=== PATIENT | female | born 1985 | race Caucasian/White ===

== ENCOUNTER 2017-02-14 16:16 | Emergency (ER) | payer OTHER ==
[2017-02-14 16:25] VITALS: BP 111/89; PULSE 63; TEMP 98.2; BMI 38.4
--- NOTE | 2017-02-14 16:54 | PDOC ---
History of Present Illness - General Chief Complaint: Pain Stated Complaint: ABD PAIN () Time Seen by Provider: 02/14/17 16:40 History Source: Patient - History of Present Illness Timing/Duration: reports: constant Quality: reports: mild Abdominal Pain Onset Location: reports: suprapubic Past History - Past Medical History Allergies/Adverse Reactions: Allergies Allergy/AdvReac Type Severity Reaction Status Date / Time No Known Allergies Allergy Verified 02/14/17 16:22 Home Medications: Ambulatory Orders NK [No Known Home Medication] 02/14/17 Asthma: No Cancer: No Cardiac Disorders: No Diabetes: No HTN: No Seizures: No Thyroid Disease: No - Psycho/Social/Smoking Cessation Hx Anxiety: No Suicidal Ideation: No Smoking History: Never smoked Have you smoked in the past 12 months: No Information on smoking cessation initiated: No Hx Alcohol Use: No Drug/Substance Use Hx: No Substance Use Type: None Hx Substance Use Treatment: No Review of Systems - Review of Systems Constitutional: No: Chills, Fever ABD/GI: Yes: Abdominal cramping. No: Nausea, Vomiting : No: Dysuria, Flank Pain *Physical Exam - Vital Signs Last Vital Signs Temp Pulse Resp BP Pulse Ox 98.2 F 63 18 111/89 100 02/14/17 16:22 02/14/17 16:22 02/14/17 16:22 02/14/17 16:22 02/14/17 16:22 - Physical Exam General Appearance: Yes: Appropriately Dressed. No: Apparent Distress HEENT: positive: Normal Voice Neck: positive: Supple Respiratory/Chest: negative: Respiratory Distress Female Pelvic Exam: positive: normal external exam, cervical os closed, normal adnexa. negative: CMT, discharge, lesions, vaginal bleeding Gastrointestinal/Abdominal: positive: Soft. negative: Tender Integumentary: positive: Dry, Warm Neurologic: positive: Fully Oriented, Alert, Normal Mood/Affect ED Treatment Course - RADIOLOGY Radiology Studies Ordered: Category Date Time Status TRANSVAGINAL US PREG [US] Stat Ultrasound 02/14/17 16:41 Ordered Medical Decision Making - Medical Decision Making 02/14/17 16:52 31 yo F, , ~10 weeks by dates, 1st next Thursday, p/w suprapubic cramping since last night. No vag bleed, dysuria, n/v/f/c See exam 1st trimester bleed Stable in ED w/ unremarkable abd and pelvic exam -tylenol -ua -beta -US 02/14/17 18:41 Pt signed out to OMKAR Virk at this time
[2017-02-14 17:13] LABS: URINE APPEARANCE CLOUDY; URINE BILIRUBIN NEGATIVE (NEGATIVE); URINE BLOOD 2+ (NEGATIVE); URINE COLOR YELLOW; URINE GLUCOSE (UA) NEGATIVE (NEGATIVE); URINE KETONE TRACE (NEGATIVE); URINE NITRITE NEGATIVE (NEGATIVE); URINE PROTEIN NEGATIVE (NEGATIVE); URINE UROBILINOGEN NEGATIVE mg/dL (0.2-1.0)
[2017-02-14 17:15] LABS: URINE LEUK ESTERASE 1+ (NEGATIVE)
[2017-02-14 17:17] LABS: URINE MUCUS RARE; URINE RBC 3 /hpf (0-3); URINE WBC 3 /hpf (3-5)
--- NOTE | 2017-02-14 21:01 | PDOC ---
*Physical Exam - Vital Signs Last Vital Signs Temp Pulse Resp BP Pulse Ox 98.2 F 63 18 111/89 100 02/14/17 16:22 02/14/17 16:22 02/14/17 16:22 02/14/17 16:22 02/14/17 16:22 ED Treatment Course - ADDITIONAL ORDERS Additional order review: Laboratory Results 02/14/17 02/14/17 17:13 17:08 Beta HCG, Quant 73616.0 Urine Color Yellow Urine Appearance Cloudy Urine pH 5.0 Urine Protein Negative Urine Glucose (UA) Negative Urine Ketones Trace H Urine Blood 2+ H Urine Nitrite Negative Urine Bilirubin Negative Urine Urobilinogen Negative Ur Leukocyte Esterase 1+ H Urine RBC 3 Urine WBC 3 Ur Epithelial Cells Few Urine Mucus Rare Progress Note - Progress Note Progress Note: US: SIUP 9 weeks 5 days FHR 146BPM *DC/Admit/Observation/Transfer Diagnosis at time of Disposition: UTI (urinary tract infection) Qualifiers: Urinary tract infection type: acute cystitis Hematuria presence: without hematuria Qualified Code(s): N30.00 - Acute cystitis without hematuria - Discharge Dispostion Disposition: HOME Condition at time of disposition: Stable Admit: No - Prescriptions Prescriptions: Nitrofurantoin Monohyd/M-Cryst [Macrobid -] 100 mg PO BID #14 capsule - Referrals Referrals: Susana Scott MD [Staff Physician] - - Patient Instructions Printed Discharge Instructions: DI for Urinary Tract Infection (UTI) Additional Instructions: Increase fluid intact Rx: macrobid Follow up with your field operations supervisor or the one listed on your discharge Return to the ER for severe/persistent/worsening symptoms.
[2017-02-14] MEDS ORDERED: NITROFURANTOIN MACROCRYSTAL 50 MG CAPSULE (FP) PO SCH (21:15)
[2017-02-14] MEDS ORDERED: NITROFURANTOIN MACROCRYSTAL 50 MG CAPSULE (FP) ONE (21:32)
== END 2017-02-14 21:07 | disposition home or self-care (01) ==
LOC: JER 16:16
DX: O23.41 Unspecified infection of urinary tract in pregnancy, first trimester (principal); Z3A.09 9 weeks gestation of pregnancy
CPT/HCPCS: 36415; 76801-TC; 81003; 81015; 84702; 87086; 99282-25

== ENCOUNTER 2017-09-04 07:55 | Inpatient (IN) | payer OTHER ==
[2017-09-04] MEDS ORDERED: BUTORPHANOL TARTRATE 1 MG/ML VIAL IVPB ONE (08:55)
[2017-09-04] MEDS ORDERED: PROMETHAZINE HCL 25 MG/1 ML VIAL IVPUSH ONE (08:55)
[2017-09-04] MEDS ORDERED: DEXTROSE 5%-LACTATED RINGERS 1,000 ML IV SCH (09:00)
--- NOTE | 2017-09-04 09:04 | HP ---
Past Medical History - Primary Care Physician PCP:: Johanna Gonzalez - Admission Chief Complaint: 32 yrs , 39 weeks iup admitted in active labor . Onset LP since 2.30 AM History of Present Illness: care at [address] [place] [address] . wt gain 10 lbs panel : 03/05/2017:A pos, Rpr nr, Hbsag neg, Hiv neg, , sickle neg, Rubella iimune , , pap nilm,gc/ct neg , cf neg 06/09/17 Quantiferon neg, , 1 hr GTT 117, , Rpr nr 08/11/17 Hiv neg, gbs neg, h/h 12.0/34.2 Sono done with MFM : growth Low PappA on NT screen (5%) Modified sequential neg, Materna T-21 neg h/o cardiac echogenic focus last spno 08/18/17: 36.4 weeks , SHERYL 12.2, EFW 5'13", BPP 8/8 h/o 08/07/15 35 weeks gestation , threatened PTL treated with IV fluids , & 2 dose of procardia 10 mg History Source: Patient, Medical Record Limitations to Obtaining History: No Limitations - Past Medical History AGENT BASED MODELER: No: Migraine, Syncope Cardiovascular: No: HTN, Murmur Pulmonary: No: Asthma Gastrointestinal: Yes: Constipation, Hemorrhoids Hepatobiliary: No: Hepatitis B Renal/: No: UTI ...: 9 ...Para: 3 ...Term: 2 (G3 09/15/03 40 wks 7'9" , G7 05/28/12 40 wks 6'9") ...: 1 (G6/25/02 35 wks 4'9" ) ...Induced : 5 (g1-2000,g2-2000, g4-2003, g5-2008,g8 ind ab ) ...LMP: 12/05/16 ... Weeks Gestation by Dates: 39 ...EDC by Dates: 09/11/17 ...EDC by Sono: 09/11/17 (39 weeks ) Heme/Onc: Yes: Anemia Infectious Disease: Yes: STD's (h/o Gonorrhea treated many years ago). No: AIDS , HIV, Tuberculosis Psych: No: Addictions, Anxiety, Bipolar, Depression, Panic, Schizophrenia Endocrine: No: Diabetes Mellitus, Hypothyroidism - Past Surgical History Past Surgical History: Yes: None Hx Myomectomy: No Hx Transabdominal Cerclage: No - Smoking History Smoking history: Never smoked Have you smoked in the past 12 months: No - Alcohol/Substance Use Hx Alcohol Use: No History of Substance Use: reports: None Home Medications - Allergies Allergies/Adverse Reactions: Allergies Allergy/AdvReac Type Severity Reaction Status Date / Time No Known Allergies Allergy Verified 09/04/17 09:08 - Home Medications Home Medications: Ambulatory Orders Ferrous Sulfate [Iron] 325 mg PO DAILY 08/07/17 Vitamins (Sjr) - 1 tab PO DAILY 08/07/17 Physical Exam - Maternity Constitutional: Yes: Moderate Distress, Obese Eyes: Yes: WNL HENT: Yes: WNL, Normocephalic Neck: Yes: WNL Cardiovascular: Yes: WNL, Regular Rate and Rhythm Lungs: Clear to auscultation Breast(s): Yes: WNL - Abdominal Exam/OB Fundal Height: 38 Number of Fetuses: Single Presentation: Vertex Contractions: Yes Regularity: Regular (2-4 min) Intensity: Mild/Mod Monitor Mode: External Heart Rate (range): 150 Heart Rate Location: [facility] Category: I Accelerations: Uniform Decelerations: None - Vaginal Exam/OB Vaginal Bleediing: No Dilatation (cm): 5-6 Effacement (%): 90 Amniotic Membrane Status: Bulging Presentation: Vertex/Position (exam at 8.20 AM) Station: -2 - Physical Exam Musculoskeletal: Yes: WNL Extremities: Yes: WNL. No: Calf Tenderness Edema: Yes Edema: LLE: 1+, RLE: 1+ Integumentary: Yes: Tattoos Deep Tendon Reflex Grade: Normal +2 ...Motor Strength: WNL Psychiatric: Yes: WNL, Alert, Oriented - Labs Lab Results: Laboratory Tests 09/04/17 09/04/17 09/04/17 09:20 09:20 09:20 WBC 13.2 H Hgb 12.7 Hct 38.1 Plt Count 153 Neutrophils % 81.3 Lymphocytes % 13.2 Monocytes % 5.0 Eosinophils % 0.3 Basophils % 0.2 PT with INR 11.70 INR 1.04 PTT (Actin FS) 26.0 L Sodium 138 Potassium 3.8 Chloride 106 Carbon Dioxide 25 BUN 7 Creatinine 0.5 L Random Glucose 86 Calcium 8.4 L Blood Type Antibody Screen 09/04/17 09:20 WBC Hgb Hct Plt Count Neutrophils % Lymphocytes % Monocytes % Eosinophils % Basophils % PT with INR INR PTT (Actin FS) Sodium Potassium Chloride Carbon Dioxide BUN Creatinine Random Glucose Calcium Blood Type A POSITIVE Antibody Screen Negative Problem List - Problems (1) 39 weeks gestation of Code(s): Z3A.39 - 39 WEEKS GESTATION OF (2) First stage of labor established Code(s): NST0311 - (3) Obesity (BMI 35.0-39.9 without comorbidity) Code(s): E66.9 - OBESITY, UNSPECIFIED Assessment/Plan 32 yrs , 39 weeks in active labor . GBS neg plan stadol + phenrgan prn for labor analgesia vag del aniticipated
[2017-09-04] MEDS ORDERED: PROMETHAZINE HCL 25 MG/1 ML VIAL ONE (09:16)
[2017-09-04] MEDS ORDERED: BUTORPHANOL TARTRATE 1 MG/ML VIAL ONE ×2 (09:16)
--- NOTE | 2017-09-04 09:39 | PN ---
Progress Note, Labor Vaginal Exam #1 Labor Exam Date: 09/04/17 Labor Exam Time: 09:33 Heart Rate (range): 150 Dilatation: 7 Effacement (%): 100 Amniotic Membrane Status: Ruptured (AROM clear) Presentation: Vertex/Position Station: -2 Remarks: fhr cat-1 UC q 2-3 min Stadol 2 mg + phenrgan 25 mg iv stat Vaginal Exam #2 Labor Exam Date: 09/04/17 Labor Exam Time: 10:25 Heart Rate (range): 130-140 Dilatation: 7 Effacement (%): 90 Amniotic Membrane Status: Ruptured Presentation: Vertex/Position Station: 0 (caput) Remarks: fhr cat-1 uc 2-4min stadol given at 9.21 AM. plan pitocin augmentation 11.10 am Selected Entries 09/04/17 10:00 Temperature 98.1 F Pulse Rate 74 Blood Pressure 122/60 Vaginal Exam #3 Labor Exam Date: 09/04/17 Labor Exam Time: 11:53 Heart Rate (range): 90 Dilatation: 100 Amniotic Membrane Status: Ruptured Presentation: Vertex/Position Station: +3 Remarks: pt pushing Selected Entries 09/04/17 10:00 Temperature 98.1 F Temperature Oral Source Pulse Rate 74 Blood Pressure 122/60 Selected Entries 09/04/17 11:00 Pulse Rate 62 Blood Pressure 89 Mean
[2017-09-04 09:42] LABS: BASO % 0.2 % (0-2.0); EOS % 0.3 % (0-4.5); HEMATOCRIT 38.1 % (32.4-45.2); HEMOGLOBIN 12.7 GM/dL (10.7-15.3); LYMPH % 13.2 % (8-40); MCH 28.8 pg (25.7-33.7); MCHC 33.5 g/dl (32.0-36.0); MEAN CELL VOLUME 86.1 fl (80-96); NEUT % 81.3 % (42.8-82.8); PLATELET COUNT 153 K/MM3 (134-434); RBC 4.42 M/mm3 (3.60-5.2); WHITE BLOOD COUNT 13.2 K/mm3 (4.0-10.0)
[2017-09-04 09:55] LABS: INR 1.04 (0.82-1.09); PROTHROMBIN TIME (PATIENT) 11.7 SEC (9.98-11.88)
[2017-09-04 10:03] VITALS: BMI 38.4
[2017-09-04 10:03] LABS: ANION GAP 7 (8-16); BLOOD UREA NITROGEN 7 mg/dL (7-18); CALCIUM 8.4 mg/dL (8.5-10.1); CHLORIDE 106 mmol/L (98-107); CO2 25 mmol/L (21-32); CREATININE 0.5 mg/dL (0.55-1.02); GLUCOSE,RANDOM 86 mg/dL (74-106); POTASSIUM 3.8 mmol/L (3.5-5.1); SODIUM 138 mmol/L (136-145)
[2017-09-04] MEDS ORDERED: OXYTOCIN 30 UNITS in 0.9% NS 30 UNIT/500 ML INFUS.BAG IVPB ONE (11:12)
[2017-09-04] MEDS ORDERED: OXYTOCIN 30 UNITS in 0.9% NS 30 UNIT/500 ML INFUS.BAG IVPB SCH (11:30)
[2017-09-04] MEDS ORDERED: D5W-LR W/ 20 UNITS OXYTOCIN 20 UNIT/1,000 ML INFUS.BAG IV ONE (11:50)
[2017-09-04] MEDS ORDERED: BENZOCAINE 20% 57 GM BOTTLE TP PRN (12:07)
[2017-09-04] MEDS ORDERED: METHYLERGONOVINE MALEATE 0.2 MG/1 ML AMP IM PRN (12:07)
[2017-09-04] MEDS ORDERED: oxyCODONE HCL 5 MG TABLET PO PRN (12:07)
[2017-09-04] MEDS ORDERED: BISACODYL 10 MG SUPP.RECT RC PRN (12:07)
[2017-09-04] MEDS ORDERED: WITCH HAZEL 50% (TUCKS) 40 PAD/JAR PAD TP PRN (12:07)
[2017-09-04] MEDS ORDERED: BENZOCAINE 28 GM HEMORRHOIDAL OINTMENT TP PRN (12:07)
[2017-09-04] MEDS ORDERED: OXYTOCIN 20 UNITS in 0.9% NS 20 UNIT/1,000 ML INFUS.BAG IV SCH (12:15)
--- NOTE | 2017-09-04 12:17 | PN ---
Delivery - Delivery Vaginal Delivery: No Problems, Spontaneous (Baby Girl was delievered in Vx presentation CHRIS position, immediate oral & nasal suction was done . perineum intact. AL hemorrhoids) Episiotomy/Laceration: None EBL (cc): 300 Delivery, Single - Stages of Labor Date 1st Stage Initiatied: 09/04/17 Time 1st Stage Initiated: 02:30 Date 2nd Stage Initiated: 09/04/17 Time 2nd Stage Initiated: 11:53 Date of Delivery: 09/04/17 Time of Delivery: 11:53 Date Placenta Delivered: 09/04/17 Time Placenta Delivered: 11:58 Placenta: Yes: Spontaneous, Uterine Exploration - Condition of Key Bed Installer/Commercial Assistant Present: No Infant Gender: Female Position: Left, OA Total Hours ROM (Hrs/Mins): 5hr-33 min - 1 Minute Total Score: 9 5 Minutes Total Score: 9 - Feeding Plan Initial Plan: Exclusive throughout hospitalization Remarks - Remarks Remarks: 32 yrs , admitted in labor, GBS neg PNC at [address] [place] [address] stadol 2 mg + phenrgan was given for labor analgesia Intrapartum course uneventful
[2017-09-04] MEDS: IBUPROFEN 600 MG TABLET (FP) PO PRN (15:43)
[2017-09-04] MEDS: FERROUS SO4 325 MG TABLET (FP) PO SCH (19:00)
[2017-09-05] MEDS: ACETAMINOPHEN 325 MG TABLET (FP) PO PRN ×3 (00:53→22:53)
[2017-09-05] MEDS: IBUPROFEN 600 MG TABLET (FP) PO PRN ×3 (00:54→22:53)
[2017-09-05] MEDS: FERROUS SO4 325 MG TABLET (FP) PO SCH ×2 (07:48→17:20)
[2017-09-05 08:37] LABS: BASO % 0.2 % (0-2.0); EOS % 0.5 % (0-4.5); HEMATOCRIT 34.9 % (32.4-45.2); HEMOGLOBIN 11.9 GM/dL (10.7-15.3); LYMPH % 18.3 % (8-40); MCH 29.3 pg (25.7-33.7); MCHC 34.1 g/dl (32.0-36.0); MEAN CELL VOLUME 85.9 fl (80-96); MEAN PLT VOLUME 9.6 fl (7.5-11.1); MONO % 6.5 % (3.8-10.2); NEUT % 74.5 % (42.8-82.8); PLATELET COUNT 141 K/MM3 (134-434); RBC 4.07 M/mm3 (3.60-5.2); RDW 14.6 % (11.6-15.6)
[2017-09-05] MEDS: PRENATAL VITAMINS W/ FOLIC ACID TABLET (FP) PO SCH (09:31)
--- NOTE | 2017-09-05 10:25 | PN ---
Post Progress Note - Subjective Subjective: Pt feeling well. Ambulating. Trying to breast feed. Voiding. Bleeding moderate Type of Delivery: Vital Signs: Vital Signs Temperature 98.2 F 09/05/17 07:40 Pulse Rate 78 09/05/17 07:40 Respiratory Rate 20 09/05/17 07:40 Blood Pressure 100/51 09/05/17 07:40 O2 Sat by Pulse Oximetry (%) Breast Exam: Yes: Soft Uterus: Yes: Fundus Firm Abdomen/GI: Yes: Abdomen soft Lochia: Yes: Rubra Lochia, amount: Small Extremities: Yes: Calves non-tender Activity: Ambulating - Labs Labs: CBC WBC 13.0 K/mm3 (4.0-10.0) H 09/05/17 07:45 RBC 4.07 M/mm3 (3.60-5.2) 09/05/17 07:45 Hgb 11.9 GM/dL (10.7-15.3) 09/05/17 07:45 Hct 34.9 % (32.4-45.2) 09/05/17 07:45 MCV 85.9 fl (80-96) 09/05/17 07:45 MCH 29.3 pg (25.7-33.7) 09/05/17 07:45 MCHC 34.1 g/dl (32.0-36.0) 09/05/17 07:45 RDW 14.6 % (11.6-15.6) 09/05/17 07:45 Plt Count 141 K/MM3 (134-434) 09/05/17 07:45 MPV 9.6 fl (7.5-11.1) 09/05/17 07:45 Neutrophils % 74.5 % (42.8-82.8) 09/05/17 07:45 Lymphocytes % 18.3 % (8-40) D 09/05/17 07:45 Monocytes % 6.5 % (3.8-10.2) 09/05/17 07:45 Eosinophils % 0.5 % (0-4.5) 09/05/17 07:45 Basophils % 0.2 % (0-2.0) 09/05/17 07:45 Problem List - Problems (1) Vaginal delivery Assessment/Plan: Pt PPD#1 s/p doing well continue routine care Dr. Francois Code(s): O80 - ENCOUNTER FOR FULL-TERM UNCOMPLICATED DELIVERY
[2017-09-05] MEDS ORDERED: SENNOSIDES/DOCUSATE COMBO (SENNA PLUS) TABLET (UD) PO PRN (22:00)
--- NOTE | 2017-09-06 07:33 | DS ---
Physical Exam-CLOTHES SHAKER Vital Signs: Vital Signs Temperature 98 F 09/05/17 21:14 Pulse Rate 84 09/05/17 21:14 Respiratory Rate 18 09/05/17 21:14 Blood Pressure 114/56 09/05/17 21:14 O2 Sat by Pulse Oximetry (%) Constitutional: Yes: Well Nourished Eyes: Yes: Conjunctiva Clear HENT: Yes: Atraumatic Neck: Yes: Supple Cardiovascular: Yes: Regular Rate and Rhythm Respiratory: Yes: Regular, CTA Bilaterally Gastrointestinal: Yes: Normal Bowel Sounds External Genitalia: Yes: Normal Vaginal Exam: Yes: Normal Cervix: Yes: Normal Uterus: Yes: Firm ....Post : Yes: Uterus firm Breast(s): Yes: WNL Musculoskeletal: Yes: WNL Extremities: Yes: WNL Neurological: Yes: Alert, Oriented ...Motor Strength: WNL Psychiatric: Yes: Alert, Oriented Labs: CBC, BMP 09/05/17 07:45 09/04/17 09:20 Delivery - Delivery Vaginal Delivery: No Problems, Spontaneous (Baby Girl was delievered in Vx presentation CHRIS position, immediate oral & nasal suction was done . perineum intact. AR hemorrhoids) Type of Anesthesia: None Episiotomy/Laceration: None EBL (cc): 300 Delivery, Single - Stages of Labor Date 1st Stage Initiatied: 09/04/17 Time 1st Stage Initiated: 02:30 Date 2nd Stage Initiated: 09/04/17 Time 2nd Stage Initiated: 11:53 Date of Delivery: 09/04/17 Time of Delivery: 11:54 Time Placenta Delivered: 11:58 Placenta: Yes: Spontaneous, Uterine Exploration - Condition of Car Pilot/Coil Winder Hand Present: No Infant Gender: Female Weight: 7 lb 7 oz Position: Left, OA Total Hours ROM (Hrs/Mins): 5hr-33 min - 1 Minute Total Score: 9 5 Minutes Total Score: 9 - Feeding Plan Initial Plan: Exclusive throughout hospitalization Discharge Summary Reason For Visit: LABOR ADMISSION Current Active Problems 39 weeks gestation of (Acute) First stage of labor established (Acute) Normal labor (Acute) Normal spontaneous vaginal delivery (Acute) Obesity (BMI 35.0-39.9 without comorbidity) (Acute) Spontaneous in first trimester (Acute) Procedures: Principal: Normal spontaneous vaginal delivery Hospital Course: Routine care Condition: Stable - Instructions Diet, Activity, Other Instructions: Post Instructions DIET: Continue good diet high in protein, calcium, and iron rich foods. Drink at least eight (8) glasses of water daily in addition to other fluids. ___ Regular diet MEDICATIONS: Continue vitamins and iron as previously directed. Motrin and Tylenol may be taken for minor discomfort. ACTIVITY: Mild to moderate exercise may be started in two (2) weeks. Take frequent rest periods. Resume normal activity after six (6) week check up. WOUND CARE OF OPERATIVE SITE: Continue use of perineal bottle until vaginal discharge stops. Keep area clean. Shower daily. Keep abdominal wound dry. Report any drainage or redness to physician. Tub baths, tampons and douches are not permitted for [address] Breast feeding & or Bottle feeding BREAST CARE: (For those that are not breast feeding): If engorgement occurs: Wear tight fitting bra. Take Tylenol or Motrin for pain. Apply cold packs (ice in bags to each breast ) FAMILY PLANNING: There are many control alternatives to pursue and they should be discussed at your first office visit. You may resume sexual activity after your six (6) week check up. (Remember, breast feeding is not a contraceptive) NEXT PHYSICIAN APPOINTMENT: Be certain to call for a six (6) week appointment, unless otherwise directed. Call Clinic or got to Emergency Dept if you have any of the following: Heavy vaginal bleeding Painful urination Leg pain Unusual odor noted to vaginal bleeding High fever Red streaking noted on breast Referrals: Johanna Gonzalez MD [Staff Physician] - Disposition: HOME - Home Medications Comprehensive Discharge Medication List: Ambulatory Orders Ferrous Sulfate [Iron] 325 mg PO DAILY 08/07/17 Vitamins (Sjr) - 1 tab PO DAILY 08/07/17 Acetaminophen [Tylenol .Regular Strength -] 650 mg PO Q3H PRN tablet 09/05/17 Ibuprofen [Motrin -] 200 mg PO Q4H PRN tablet 09/05/17 Vitamins (Sjr) - 1 tab PO DAILY tablet 09/05/17
[2017-09-06 07:42] VITALS: BP 103/58; PULSE 67; TEMP 98.5
[2017-09-06] MEDS: FERROUS SO4 325 MG TABLET (FP) PO SCH (08:29)
[2017-09-06] MEDS: PRENATAL VITAMINS W/ FOLIC ACID TABLET (FP) PO SCH (09:27)
[2017-09-06] MEDS: IBUPROFEN 600 MG TABLET (FP) PO PRN (09:27)
[2017-09-06] MEDS: ACETAMINOPHEN 325 MG TABLET (FP) PO PRN (09:28)
== END 2017-09-06 17:10 | disposition home or self-care (01) | DRG 560 ==
LOC: JDEL 07:55 → JLDR 08:00 → J3W 13:59
PROVIDERS: ADMIT Obstetrics & Gynecology; ATTEND Obstetrics & Gynecology
PROC: 10E0XZZ Delivery of Products of Conception, External Approach (ICD-10-PCS; principal; 2017-09-04)
DX: O80 Encounter for full-term uncomplicated delivery (principal); Z3A.39 39 weeks gestation of pregnancy; Z37.0 Single live birth
CPT/HCPCS: 36415; 59409; 80048; 85025; 85610; 85730; 86593; 86850; 86900; 86901